=== PATIENT | female | born 1975 | race Native Hawaiian/Other Pacific Islander ===

== ENCOUNTER 2017-06-09 06:32 | Inpatient (IN) | payer OTHER ==
[2017-06-07 14:28] LABS: Basophils # (Auto) 0.1 K/mm3 (0.0-0.1); Basophils % (Auto) 0.9 % (0.0-1.8); Eosinophils # (Auto) 0.1 K/mm3 (0.0-0.4); Eosinophils % (Auto) 0.9 % (0.0-4.3); Hematocrit 26.2 % (30.3-42.9); Hemoglobin 7.9 gm/dl (10.1-14.3); Lymphocytes % (Auto) 29.8 % (13.4-35.0); Mean Corpuscular HGB Conc 30 % (30-34); Monocytes # (Auto) 0.6 K/mm3 (0.0-0.8); Monocytes % (Auto) 8.4 % (0.0-7.3); Platelet Count 317 K/mm3 (140-440); Red Blood Count 4.14 M/mm3 (3.65-5.03); Red Cell Distribution Width 19.6 % (13.2-15.2)
[2017-06-07 14:29] LABS: Mean Corpuscular Hemoglobin 19 pg (28-32); Mean Corpuscular Volume 63 fl (79-97)
--- NOTE | 2017-06-07 14:40 | Anesthesia Consultation ---
Anesthesia Consult and Med Hx Date of service: 06/07/17 - Airway Anesthetic Teeth Evaluation: Good ROM Head & Neck: Adequate Mental/Hyoid Distance: Adequate Mallampati Class: Class II Intubation Access Assessment: Probably Good - Pulmonary Exam CTA: Yes - Cardiac Exam Cardiac Exam: RRR - Pre-Operative Health Status ASA Pre-Surgery Classification: ASA1 Proposed Anesthetic Plan: General - Pre-Anesthesia Comment Pre-Anesthesia Comments: Hx of motion sickness - Pulmonary Hx Smoking: No - Cardiovascular System Hx Hypertension: No Hx Heart Attack/AMI: No - Central Nervous System Hx Psychiatric Problems: No - Hematic Hx Anemia: Yes (borderline, takes iron) - Other Systems Hx Cancer: No - Additional Comments Anesthesia Medical History Comments: Pt denies any familial anesthesia complication
[~2017-06-09 06:32] MED LIST: PEPCID PO NR; SUBLIMAZE IV ONE; TRANSDERM-SCOP TD NR; VERSED IV NR
[2017-06-09] MEDS ORDERED: NEURONTIN PO NR ×2 (07:00→09:00)
--- NOTE | 2017-06-09 07:11 | History and Physical Report ---
History of Present Illness Date of examination: 06/09/17 Date of admission: 06/09/17 06:32 Chief complaint: Symptomatic uterine fibroids History of present illness: Pt is a 42yo HF LMP 05/19/17 presents for surgical evaluation and treatment of uterine fibroids. Pelvic u/s showed an enlarged uterus 10 x 9 x 6.5cm with uterine fibroids, the largest 6.3 x 6.0cm. Pt desires a Total Abdominal Hysterectomy with ovarian conservation. 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 Social history: no significant social history, , other (Sikhism ) Medications and Allergies Allergies Allergy/AdvReac Type Severity Reaction Status Date / Time No Known Allergies Allergy Unverified 06/02/17 16:45 Home Medications Medication Instructions Recorded Confirmed Last Taken Type Ferrous Sulfate [Iron] 325 mg PO DAILY 06/02/17 06/02/17 Unknown History Active Meds: Active Medications Famotidine (Pepcid) 20 mg PO PREOP NR Stop: 06/09/17 23:59 Lactated Ringer's (Lactated Ringers) 1,000 mls @ 100 mls/hr IV DIRECT CORETTA Cefazolin Sodium (Ancef/Sterile Water 2 Gm/20 Ml) 2 gm in 20 mls @ 80 mls/hr IV PREOP CORETTA PRN Reason: Protocol Midazolam HCl (Versed) 2 mg IV PREOP NR Stop: 06/09/17 23:59 Scopolamine (Transderm-Scop) 1 each TD PREOP NR Stop: 06/12/17 05:59 Review of Systems All systems: negative - Vital Signs Vital signs: Vital Signs Temp Pulse Resp BP 98 F 60 14 110/68 06/07/17 14:00 06/07/17 14:00 06/07/17 14:00 06/07/17 14:00 Temp Pulse Resp BP Pulse Ox 98 F 60 14 110/68 06/07/17 14:00 06/07/17 14:00 06/07/17 14:00 06/07/17 14:00 - Physical Exam Breasts: Positive: deferred Cardiovascular: Regular rate Lungs: Positive: Clear to auscultation Abdomen: Positive: normal appearance Genitourinary (Female): Positive: normal external genitalia Uterus: Positive: enlarged Extremities: Positive: normal Results Result Diagrams: 06/07/17 14:05 All other labs normal. Ultrasound: report reviewed Assessment and Plan - Patient Problems (1) Uterine fibroid Onset Date: 06/09/17 Current Visit: Yes Status: Chronic Qualifiers: Uterine leiomyoma location: intramural Qualified Code(s): D25.1 - Intramural leiomyoma of uterus Plan to address problem: A: Symptomatic uterine fibroids Menorrhagia - due to uterine fibroids Chronic blood loss anemia - due to menorrhagia P: Admit for a Total Abdominal Hysterectomy Pt is a Sikhism, therefore cell saver will be made available for surgery (2) Anemia Onset Date: 06/09/17 Current Visit: Yes Status: Acute Qualifiers: Iron deficiency anemia type: chronic blood loss (3) Menorrhagia with irregular cycle Onset Date: 06/09/17 Current Visit: Yes Status: Chronic
[2017-06-09] MEDS ORDERED: NACL BACTERIOSTATIC INFILTRATI ONE (07:42)
[2017-06-09] MEDS ORDERED: ANCEF/STERILE WATER 2 GM/20 ML 2 GM/20 ML SYRINGE IV NR (08:00)
[2017-06-09] MEDS ORDERED: ACD-A 0 ML IV ONE (08:07)
[2017-06-09] MEDS: LACTATED RINGERS 1,000 ML IV SCH ×2 (08:14→18:48)
[2017-06-09] MEDS ORDERED: DECADRON ONE ×2 (08:22→09:35)
[2017-06-09] MEDS ORDERED: MARCAINE 0.5% 30 ML INFILTRATI ONE (08:22)
[2017-06-09] MEDS ORDERED: DILAUDID ONE ×2 (08:57→11:52)
[2017-06-09] MEDS ORDERED: DIPRIVAN 10 MG/ML IV ONE (08:57)
[2017-06-09] MEDS ORDERED: ACD-A 500 ML IV ONE (09:00)
--- NOTE | 2017-06-09 09:09 | Anesthesia Day of Surgery ---
Anesthesia Day of Surgery - Day of Surgery Patient Examined: Yes Patient H&P Reviewed: Yes Patient is NPO: Yes
[2017-06-09] MEDS ORDERED: NACL 0.9% 1000 ML 1,000 ML ONE ×2 (09:20→11:21)
[2017-06-09] MEDS ORDERED: NACL 0.9% IR ONE ×2 (09:50)
[2017-06-09] MEDS ORDERED: ACD-A IV ONE (09:50)
[2017-06-09] MEDS ORDERED: ZEMURON IV ONE (09:58)
[2017-06-09] MEDS ORDERED: XYLOCAINE MPF 2% ONE (09:58)
[2017-06-09] MEDS ORDERED: ZOFRAN ONE (09:59)
[2017-06-09] MEDS ORDERED: NARCAN 0.4 MG/1 ML IV PRN (11:01)
[2017-06-09] MEDS ORDERED: BENADRYL IV PRN (11:01)
[2017-06-09] MEDS ORDERED: ZOFRAN IV PRN (11:01)
[2017-06-09] MEDS ORDERED: MILK OF MAGNESIA PO PRN (11:04)
[2017-06-09] MEDS ORDERED: PERCOCET 5/325 PO PRN (11:04)
[2017-06-09] MEDS ORDERED: TYLENOL PO PRN (11:04)
--- NOTE | 2017-06-09 11:21 | Operative Report ---
Operative Report Operative Report: Date of procedure: 06/09/2017 Pre-operative diagnosis: 1. Symptomatic uterine fibroids 2. Menorrhagia 3. Chronic blood loss anemia Post-operative diagnosis: Same Procedure name(s): 1. Total abdominal hysterectomy 2. Bilateral salpingectomy Surgeon: Sarwat Spence MD Web Sizer: None Anesthesia: Gen. endotracheal intubation by Dr. Lopes EBL: Less than 50 mL's Findings: A 10-12 week size myomatous uterus with normal tubes and ovaries bilaterally. Procedure: After the patient was first correctly identified and after general anesthesia was administered she was prepped and draped in usual in the usual sterile fashion and placed in the dorsolithotomy position. The skin knife was used to make a transverse skin incision. The incision was extended down to the layer of the fascia which was nicked in the midline and extended laterally using Bovie cautery. The rectus muscles were dissected off the rectus fascia both superiorly and inferiorly, the rectus bellies in the midline and the peritoneum was entered under direct visualization. Exploration of the pelvic organs found the uterus to be enlarged and the tubes and ovaries were normal bilaterally. Next the bowels were packed back and the right round ligament was clamped, cauterized and cut using the Enseal device. The fallopian tubes were clamped, cauterized and cut along the mesosalpinx bilaterally. The utero-ovarian ligaments were clamped, cauterized and cut, thus freeing the right ovary from the right uterine sidewall. The same procedure was performed on the left. The left round ligament was clamped, cauterized and cut, and the left utero-ovarian ligament was clamped, cauterized and cut thus freeing the left ovary from the left uterine sidewall. The uterine vessels were then skeletonized bilaterally, and the bladder flap was taken down anteriorly. The uterine vessels were then clamped, cauterized and cut bilaterally, and the cardinal ligaments were sequentially clamped, cauterized and cut down to the level of the uterosacral ligaments. The cervix was then amputated from the vaginal cuff and the specimen was handed off the surgical field. The vaginal cuff was then made hemostatic using several sutures of 0 Vicryl suture in a [id number] configuration. After excellent hemostasis was assured copious amounts of irrigation was then performed. The Tisseel sealant was then sprayed across the vaginal cuff and the superior pedicles bilaterally, and after excellent hemostasis was assured the procedure was considered complete. All instruments removed from abdomen, and the peritoneum was closed using 0 Vicryl suture in a running interlocking fashion and the rectus muscles were also loosely re-approximated using 0 Vicryl suture in a [id number] configuration. The fascia was then re-approximated using # 1 Vicryl suture in a running interlocking fashion, the subcutaneous layer made hemostatic using Bovie cautery and the skin edges re-approximated using 4-0 Vicryl suture in a sub-cuticular fashion. Patient tolerated the procedure well was transported to recovery room in stable condition.
--- NOTE | 2017-06-09 11:33 | Post Anesthesia Evaluation ---
- Post Anesthesia Evaluation Patient Participated: Yes Airway Patent: Yes Stable Respiratory Function: Yes Nausea/Vomiting: No Temp > 96.8F: Yes Pain Manageable: Yes Adequeate Hydration: Yes Anesthesia Complications: No Block Receding Appropriately: Not Applicable Patient on Ventilator: No
[2017-06-09] MEDS ORDERED: DILAUDID IV PRN (11:47)
[2017-06-09] MEDS: DILAUDID IV PRN ×2 (11:50→12:00)
[2017-06-09] MEDS ORDERED: D5LR 1,000 ML IV SCH (12:00)
[2017-06-09] MEDS ORDERED: MORPHINE PCA 30MG/30ML IV SCH (12:00)
[2017-06-09] MEDS ORDERED: NACL 0.9% 1000 ML 1,000 ML IV SCH (12:00)
[2017-06-09] MEDS ORDERED: ANCEF/NS 1 GM/50 ML 1 GM/50 ML BAG IV SCH (12:00)
[2017-06-09] MEDS: TORADOL IV SCH ×2 (12:02→18:20)
[2017-06-09] MEDS ORDERED: VERSED ONE (12:43)
--- NOTE | 2017-06-09 18:45 | Progress Note ---
Assessment and Plan - Patient Problems (1) Uterine fibroid Onset Date: 06/09/17 Current Visit: Yes Status: Resolved Qualifiers: Uterine leiomyoma location: intramural Qualified Code(s): D25.1 - Intramural leiomyoma of uterus (2) Anemia Onset Date: 06/09/17 Current Visit: Yes Status: Chronic Qualifiers: Iron deficiency anemia type: chronic blood loss (3) Menorrhagia with irregular cycle Onset Date: 06/09/17 Current Visit: Yes Status: Resolved (4) S/P ALEENA (total abdominal hysterectomy) Onset Date: 06/09/17 Current Visit: Yes Status: Acute Plan to address problem: A: S/P ALEENA - POD #0 Doing well P: Continue RPOC Subjective - Subjective Date of service: 06/09/17 Principal diagnosis: Post -op visit Interval history: Pt is feeling well, resting. 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 Surgical findings discussed with pt and her family members. All questions answered. Patient reports: pain well controlled Objective - Vital Signs Latest vital signs: Vital Signs Temp Pulse Resp BP BP Pulse Ox 06/09/17 16:06 98.5 F 63 16 94/53 98 06/09/17 13:10 98.3 F 70 12 97/52 100 06/09/17 13:00 12 100 06/09/17 12:32 15 06/09/17 12:30 70 15 104/50 100 06/09/17 12:25 69 15 98/50 100 06/09/17 12:20 69 15 95/48 100 06/09/17 12:05 97.6 F 70 15 105/60 100 06/09/17 12:02 15 06/09/17 12:00 15 06/09/17 11:50 68 15 106/40 100 06/09/17 11:35 70 15 106/49 100 06/09/17 11:20 62 14 109/60 100 06/09/17 11:15 62 15 109/55 100 06/09/17 11:10 69 14 106/51 100 06/09/17 11:04 97.6 F 63 15 106/57 100 06/09/17 09:15 75 12 95/47 100 06/09/17 09:07 99.1 F 70 12 103/54 100 06/09/17 09:05 71 11 L 104/47 100 06/09/17 09:00 71 12 98/55 100 06/09/17 08:55 79 13 101/49 100 06/09/17 08:50 74 12 94/53 100 06/09/17 08:45 67 11 L 97/64 100 06/09/17 08:40 66 12 91/56 100 06/09/17 08:35 77 12 102/59 100 06/09/17 08:30 65 11 L 101/51 100 06/09/17 08:10 99.1 F 70 12 103/54 100 Intake and Output 06/09/17 06/09/17 06/09/17 06:59 14:59 22:59 Intake Total 2100 Output Total 145 Balance 1954 Intake: IV 2100 Output: Urine 145 Other: Voiding Method Indwelling Catheter
[2017-06-09] MEDS: SENOKOT S PO SCH (21:04)
[2017-06-09] MEDS: ceFAZolin 1 GM in NACL 0.9% 20 ML IV SCH (21:05)
[2017-06-10] MEDS: TORADOL IV SCH ×2 (01:03→06:30)
[2017-06-10] MEDS: ceFAZolin 1 GM in NACL 0.9% 20 ML IV SCH (04:41)
[2017-06-10 05:30] LABS: Hematocrit 20.1 % (30.3-42.9)
--- NOTE | 2017-06-10 08:57 | Progress Note ---
Assessment and Plan - Patient Problems (1) Uterine fibroid Onset Date: 06/09/17 Current Visit: Yes Status: Resolved Qualifiers: Uterine leiomyoma location: intramural Qualified Code(s): D25.1 - Intramural leiomyoma of uterus (2) Anemia Onset Date: 06/09/17 Current Visit: Yes Status: Chronic Qualifiers: Iron deficiency anemia type: chronic blood loss (3) Menorrhagia with irregular cycle Onset Date: 06/09/17 Current Visit: Yes Status: Resolved (4) S/P ALEENA (total abdominal hysterectomy) Onset Date: 06/09/17 Current Visit: Yes Status: Acute Plan to address problem: A: S/P ALEENA - POD #1 Doing well Asymptomatic anemia P: Continue RPOC Encourage ambulation Anticipate discharge in 24-48hrs Subjective - Subjective Date of service: 06/10/17 Principal diagnosis: s/p ALEENA - POD #1 Interval history: Pt is feeling well, without complaints. Tolerating a liquid diet without nausea or vomiting. 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 Patient reports: appetite normal, voiding normally, pain well controlled, no flatus, no ambulating normally Objective - Vital Signs Latest vital signs: Vital Signs Temp Pulse Resp BP BP Pulse Ox 06/10/17 05:20 98.4 F 50 L 16 87/41 100 06/10/17 00:55 98.9 F 56 L 16 88/48 99 06/09/17 20:45 98.6 F 54 L 16 89/50 100 06/09/17 18:53 16 06/09/17 16:06 98.5 F 63 16 94/53 98 06/09/17 16:00 16 06/09/17 13:10 98.3 F 70 12 97/52 100 06/09/17 13:00 98.3 F 70 10 L 97/52 100 06/09/17 12:32 15 06/09/17 12:30 70 15 104/50 100 06/09/17 12:25 69 15 98/50 100 06/09/17 12:20 69 15 95/48 100 06/09/17 12:05 97.6 F 70 15 105/60 100 06/09/17 12:02 15 06/09/17 12:00 15 06/09/17 11:50 68 15 106/40 100 06/09/17 11:35 70 15 106/49 100 06/09/17 11:20 62 14 109/60 100 06/09/17 11:15 62 15 109/55 100 06/09/17 11:10 69 14 106/51 100 06/09/17 11:04 97.6 F 63 15 106/57 100 06/09/17 09:15 75 12 95/47 100 06/09/17 09:07 99.1 F 70 12 103/54 100 06/09/17 09:05 71 11 L 104/47 100 06/09/17 09:00 71 12 98/55 100 06/09/17 08:55 79 13 101/49 100 Intake and Output 06/09/17 06/10/17 06/10/17 22:59 06:59 14:59 Intake Total 1120 220 Output Total 350 1100 Balance 770 -880 Intake: IV 1000 Lactated Ringers 1,000 ml 1000 @ 100 mls/hr IV DIRECT CORETTA Rx#:[id number] Intake, Free Water 120 220 Output: Urine 350 1100 Indwelling Catheter 350 1100 Other: Total, Output Amount 350 500 Voiding Method Indwelling Catheter - Exam Breasts: Present: deferred Abdomen: Present: normal appearance, soft Extremities: Present: normal Incision: Present: normal, dry, intact, dressed - Labs Labs: Abnormal lab results 06/10/17 Range/Units 05:00 Hgb 6.0 L (10.1-14.3) gm/dl Hct 20.1 L D (30.3-42.9) % Laboratory Tests 06/07/17 06/07/17 06/10/17 14:05 14:05 05:00 WBC 6.7 RBC 4.14 Hgb 7.9 L 6.0 L Hct 26.2 L 20.1 L D MCV 63 L MCH 19 L MCHC 30 RDW 19.6 H Plt Count 317 Lymph % (Auto) 29.8 [place] % (Auto) 8.4 H Eos % (Auto) 0.9 Baso % (Auto) 0.9 Lymph # 2.0 [place] # 0.6 Eos # 0.1 Baso # 0.1 Seg Neutrophils % 60.0 Seg Neutrophils # 4.0 HCG, Qual Negative
[2017-06-10] MEDS: NORCO 5/325 PO PRN ×3 (10:57→21:07)
[2017-06-10] MEDS: SENOKOT S PO SCH (10:57)
[2017-06-11] MEDS: TORADOL IV SCH (04:58)
--- NOTE | 2017-06-11 09:24 | Progress Note ---
Assessment and Plan A: S/P ALEENA - POD #2 Doing well Asymptomatic anemia P: Discharge home Follow up in clinic in 1-2 weeks - Patient Problems (1) S/P ALEENA (total abdominal hysterectomy) Onset Date: 06/09/17 Current Visit: Yes Status: Acute Subjective - Subjective Date of service: 06/11/17 Principal diagnosis: s/p ALEENA - POD #2 Interval history: Patient seen and examined, stable and doing well. No nausea vomiting, no dizziness, no bleeding, ambulating without difficulty with bowel bladder function Patient reports: appetite normal, voiding normally, pain well controlled, flatus , ambulating normally, no dizzy ambulation, no nauseated Objective - Vital Signs Latest vital signs: Vital Signs Temp Pulse Resp BP Pulse Ox 06/11/17 04:30 98.6 F 69 18 92/46 95 06/10/17 23:45 98.2 F 77 18 98/43 95 06/10/17 23:16 95 06/10/17 23:15 95 06/10/17 20:25 98.2 F 69 18 98/52 98 06/10/17 16:17 98.1 F 62 18 98/50 06/10/17 12:48 98.5 F 57 L 16 84/59 Intake and Output 06/10/17 06/11/17 06/11/17 23:59 07:59 15:59 Intake Total 240 240 Output Total 500 Balance -260 240 Intake: Oral 240 240 Output: Urine 500 Void 500 Other: Total, Intake Amount 240 240 Total, Output Amount 500 # Voids Void 1 - Exam Abdomen: Present: normal appearance, soft. Absent: distention, tenderness, guarding, rigidity Extremities: Present: normal Incision: Present: dry, intact
--- NOTE | 2017-06-11 09:28 | Discharge Summary ---
Providers - Providers Date of Admission: 06/09/17 06:32 Date of discharge: 06/11/17 Attending physician: SHEA GUZMAN Primary care physician: WILLIAM LORA Hospitalization Reason for admission: other (status post-ALEENA for fibroid uterus) Procedure: other (total abdominal hysterectomy) Incision: dry, intact Discharge diagnosis: other (total abdominal hysterectomy for fibroid uterus) Hospital course: Uncomplicated postop course Condition at discharge: Good - Discharge Diagnoses (1) S/P ALEENA (total abdominal hysterectomy) Status: Acute Plan - Discharge Medications Prescriptions: Ibuprofen [Motrin 600 MG tab] 600 mg PO Q8H PRN #30 tablet PRN Reason: Pain Multivitamin with Iron [Multivitamins with Iron] 1 each PO DAILY #30 tablet oxyCODONE /ACETAMINOPHEN [Percocet 5/325] 1 tab PO Q6HR PRN #30 tablet PRN Reason: Pain - Provider Discharge Summary Activity: no sex for 6 weeks, no heavy lifting 4 weeks, no strenuous exercise Diet: routine Additional instructions: [] Smoking cessation referral if applicable(refer to patient education folder for contact #) [] Refer to [facility] Booklet Call your doctor immediately for: * Fever > 100.5 * Heavy vaginal bleeding ( >1 pad per hour) * Severe persistent headache * Shortness of breath * Reddened, hot, painful area to leg or breast * Drainage or odor from incision. * Keep incision clean and dry at all times and follow doctor's instructions regarding bathing/showering - Follow up plan Follow up: WILLIAM LORA MD [Primary Care Provider] - 7 Days SHEA GUZMAN MD [Staff Physician] - 7 Days
[2017-06-11] MEDS: NORCO 5/325 PO PRN (12:25)
[2017-06-11 15:35] VITALS: BP 102/55
== END 2017-06-11 12:15 | disposition home or self-care (01) | DRG 743 ==
LOC: 3A 06:32 → OB 11:44
PROVIDERS: ADMIT Obstetrics & Gynecology; ATTEND Obstetrics & Gynecology
PROC: 0UT90ZZ Resection of Uterus, Open Approach (ICD-10-PCS; principal; 2017-06-09)
PROC: 0UT70ZZ Resection of Bilateral Fallopian Tubes, Open Approach (ICD-10-PCS; 2017-06-09)
DX: D25.9 Leiomyoma of uterus, unspecified (principal); N92.0 Excessive and frequent menstruation with regular cycle; D50.0 Iron deficiency anemia secondary to blood loss (chronic)
CPT/HCPCS: 36415; 64450; 84703; 85014; 85018; 85025; 88307; A4217; C9250; J0690; J1100; J1170; J1885; J2250; J2270; J2405; J2704; J3010; J7030; J7120; J7121